=== PATIENT | male | born 2000 | race Two or more races ===

== ENCOUNTER 2024-04-29 03:57 | Inpatient (IN) | payer MEDICAID, OTHER ==
[~2024-04-29] VITALS: Ht 165.1 cm; Wt 59.0 kg
[2024-04-29 04:20] VITALS: PULSE 98; RESP 18; O2SAT 95
[2024-04-29] MEDS ORDERED: LORazepam 2MG/ML-1ML VIAL IV PRN ×2 (04:30→13:45)
[2024-04-29] MEDS: levETIRAcetam 1000 mg/100ml 100 ML IV ONE (04:52)
[2024-04-29 05:00] VITALS: PULSE 101; RESP 25; O2SAT 100
[2024-04-29 05:14] LABS: Basophils # (auto) 0 10 ^3/uL (0-0.2); Basophils % (auto) 0.1 % (0.0-2.0); Eosinophils # (auto) 0 10 ^3/uL (0-0.8); Hematocrit 45.1 % (41.0-53.0); Hemoglobin 15.1 g/dL (13.5-17.5); Lymphocytes # (auto) 0.5 10 ^3/uL (0.4-5.4); Lymphocytes % (auto) 3.5 % (10.0-50.0); Mean Corpuscular Hemoglobin 29.5 pg (28.0-32.0); Mean Corpuscular Hgb Conc. 33.6 g/dL (32.0-36.0); Mean Corpuscular Volume 87.8 fL (80.0-100.0); Monocytes % (auto) 6.9 % (0.0-12.0); Neutrophils # (auto) 13.5 10 ^3/uL (1.6-8.6); Neutrophils % (auto) 89.5 % (37.0-80.0); Red Blood Cells 5.13 10^6/uL (4.5-5.90); Red Cell Distribution Width 12.8 % (11.8-14.3)
[2024-04-29 05:43] LABS: Alanine Aminotransferase 23 U/L (7-40); Albumin 4.9 g/dL (3.2-4.8); Alkaline Phosphatase 59 U/L (46-116); Anion Gap 8 (5-15); Aspartate Aminotransferase 41 U/L (13-40); BUN/Creatinine Ratio 9.9 (10.0-20.0); Blood Alcohol < 3.0 mg/dL (<10); Blood Urea Nitrogen 13 mg/dL (9-23); Calcium 9.2 mg/dL (8.5-10.1); Carbon Dioxide 23 mmol/L (20-30); Chloride 109 mmol/L (98-107); Glucose 112 mg/dL (74-106); Potassium 4.2 mmol/L (3.5-5.1); Sodium 140 mmol/L (136-145)
[2024-04-29 05:44] LABS: Bilirubin, Total 0.3 mg/dL (0.2-1.0); Total Protein 7.5 g/dL (5.7-8.2)
[2024-04-29] MEDS: TETANUS-DIPTH-ACEL PERTUSSIS 0.5ML SYR Tdap IM ONE (07:15)
[2024-04-29 08:00] VITALS: PULSE 96; O2SAT 98
[2024-04-29] MEDS: ACETAMINOPHEN 325 MG TAB PO ONE (09:41)
[2024-04-29] MEDS: NEOMYCIN-BACITRACIN-POLYM UNITDOSE PKG TOP OINT TOP ONE (12:30)
[2024-04-29] MEDS ORDERED: ONDANSETRON HCL 4 MG/2 ML VIAL IV PRN (13:45)
[2024-04-29] MEDS ORDERED: DOCUSATE SOD 100 MG CAP PO PRN (13:45)
[2024-04-29] MEDS ORDERED: SODIUM CHLORIDE 0.9% 1,000 ML IV SCH (13:45)
[2024-04-29] MEDS: ONDANSETRON HCL 4 MG/2 ML VIAL IV ONE (13:48)
[2024-04-29] MEDS: SODIUM CHLORIDE 0.9% 1,000 ML IV ONE (13:48)
[2024-04-29] MEDS: SODIUM CHLORIDE 0.9% 2,000 ML IV ONE (14:15)
[2024-04-29] MEDS: MORPHINE SULFATE INJ 2 MG/ml SYRG IV PRN (14:18)
[2024-04-29] MEDS: SODIUM CHLORIDE 0.9% 1,000 ML IV SCH (14:42)
[2024-04-29] MEDS: METOCLOPRAMIDE HCL 5MG/ml INJ 2ml VIAL IV PRN (14:49)
[2024-04-29] MEDS ORDERED: MORPHINE SULFATE INJ 2 MG/ml SYRG IV PRN ×3 (19:15→23:15)
[2024-04-29] MEDS: HYDROcodone-ACET 5/325MG TAB PO PRN (20:00)
[2024-04-29 20:15] VITALS: PULSE 90; RESP 22; O2SAT 98
[2024-04-29 20:52] LABS: Urine Bacteria FEW /hpf (None Seen); Urine Blood 1+ /uL (Negative); Urine Clarity Clear (Clear); Urine Color Colorless (Yellow); Urine Hyaline Cast FEW /lpf (0 - 2); Urine Mucus FEW (None Seen); Urine Protein, UAD 1+ (Negative); Urine Specific Gravity 1.006 (1.001-1.035); Urine Urobilinogen Normal (Negative); Urine WBC 2 /hpf (0 - 3); Urine pH 5.5 (5.0-9.0)
[2024-04-29 20:54] LABS: Amphetamine Screen, Urine Neg (NEGATIVE); Barbiturate Scree,Urine Neg (NEGATIVE); Benzodiazephine Screen, Urine Pos (NEGATIVE); Cannabinoid Screen, Urine Pos (NEGATIVE); Cocaine Screen, Urine Neg (NEGATIVE); Opiate Scree,Urine Neg (NEGATIVE); Phencyclidine Screen, Urine Neg (NEGATIVE)
[2024-04-29] MEDS ORDERED: levETIRAcetam 1000 mg/100ml 100 ML IV SCH (22:00)
[2024-04-29] MEDS: levETIRAcetam 500 MG TAB PO SCH (22:14)
[2024-04-29] MEDS: NEOMYCIN-BACITRACIN-POLYM 15GM TOP OINT TOP SCH (22:14)
[2024-04-29] MEDS ORDERED: NITROGLYCERIN 0.4 MG SL TAB SL PRN (23:15)
[2024-04-30] VITALS (7 sets, daily range): BP systolic 105–123; BP diastolic 51–78; PULSE 62–77; RESP 16–21; TEMP 97.9–98.7; O2SAT 99–100
[2024-04-30] MEDS: SODIUM CHLORIDE 0.9% 1,000 ML IV SCH (01:30)
[2024-04-30] MEDS ORDERED: LEVE500T40 PO (05:24)
[2024-04-30 06:32] LABS: Basophils # (auto) 0 10 ^3/uL (0-0.2); Basophils % (auto) 0.1 % (0.0-2.0); Eosinophils # (auto) 0 10 ^3/uL (0-0.8); Hematocrit 38.2 % (41.0-53.0); Hemoglobin 13.1 g/dL (13.5-17.5); Lymphocytes # (auto) 1.4 10 ^3/uL (0.4-5.4); Lymphocytes % (auto) 10.4 % (10.0-50.0); Mean Corpuscular Hemoglobin 30.1 pg (28.0-32.0); Mean Corpuscular Hgb Conc. 34.3 g/dL (32.0-36.0); Mean Corpuscular Volume 87.6 fL (80.0-100.0); Monocytes # (auto) 1.4 10 ^3/uL (0-1.3); Monocytes % (auto) 10.8 % (0.0-12.0); Neutrophils # (auto) 10.5 10 ^3/uL (1.6-8.6); Neutrophils % (auto) 78.7 % (37.0-80.0); Red Blood Cells 4.37 10^6/uL (4.5-5.90); White Blood Cell 13.3 10^3/uL (4.4-10.8)
[2024-04-30 06:52] LABS: Alanine Aminotransferase 28 U/L (7-40); Albumin 3.6 g/dL (3.2-4.8); Alkaline Phosphatase 39 U/L (46-116); Anion Gap 12 (5-15); Aspartate Aminotransferase 75 U/L (13-40); BUN/Creatinine Ratio 7.5 (10.0-20.0); Bilirubin, Total 0.6 mg/dL (0.2-1.0); Calcium 8.6 mg/dL (8.7-10.4); Carbon Dioxide 18 mmol/L (20-30); Chloride 115 mmol/L (98-107); Glucose 98 mg/dL (74-106); Potassium 4.1 mmol/L (3.5-5.1); Total Protein 5.7 g/dL (5.7-8.2)
[2024-04-30 07:43] LABS: Blood Urea Nitrogen 24 mg/dL (9-23); Sodium 145 mmol/L (136-145)
[2024-04-30] MEDS ORDERED: KEP500T PO (17:14)
[2024-04-30] MEDS: levETIRAcetam 500 MG TAB PO SCH (18:56)
== END 2024-04-30 20:15 | disposition home or self-care (01) | DRG 53 ==
LOC: EDBD 03:57 → ER 03:57 → TELE-CENTR 23:06 → TELE 23:06 → TELE-CENTR 04-30 03:11
PROVIDERS: ADMIT Internal Medicine; ATTEND Internal Medicine
DX: G40.409 Other generalized epilepsy and epileptic syndromes, not intractable, without status epilepticus (principal); N17.0 Acute kidney failure with tubular necrosis; M62.82 Rhabdomyolysis; S05.31XA Ocular laceration without prolapse or loss of intraocular tissue, right eye, initial encounter; D72.829 Elevated white blood cell count, unspecified; S05.8X1A Other injuries of right eye and orbit, initial encounter; M25.552 Pain in left hip; Z79.899 Other long term (current) drug therapy; W18.30XA Fall on same level, unspecified, initial encounter; Y93.89 Activity, other specified; Y92.89 Other specified places as the place of occurrence of the external cause; Y99.8 Other external cause status
CPT/HCPCS: 36415; 70450; 72125; 73060; 73502; 80053; 80307; 80320; 81001; 82550; 83874; 85025; 90471; 90715; 96361; 96365; 96375; G0378; J2405

== ENCOUNTER 2024-07-09 04:56 | Emergency (ER) | payer MEDICAID, OTHER ==
[~2024-07-09] VITALS: Ht 175.3 cm; Wt 72.0 kg
[~2024-07-09 04:56] MED LIST: KEP500T PO; LEVE500T40 PO
[2024-07-09 05:15] VITALS: TEMP 98.1
[2024-07-09 05:30] VITALS: PULSE 18; RESP 18; O2SAT 96
[2024-07-09] MEDS: levETIRAcetam 1000 mg/100ml 100 ML IV ONE (05:30)
[2024-07-09] MEDS: SODIUM CHLORIDE 0.9% 1,000 ML IV ONE (05:45)
[2024-07-09 06:14] LABS: Basophils # (auto) 0 10 ^3/uL (0-0.2); Basophils % (auto) 0.3 % (0.0-2.0); Eosinophils # (auto) 0.1 10 ^3/uL (0-0.8); Eosinophils % (auto) 0.7 % (0.0-7.0); Hematocrit 45.6 % (41.0-53.0); Hemoglobin 15.7 g/dL (13.5-17.5); Lymphocytes # (auto) 2.7 10 ^3/uL (0.4-5.4); Mean Corpuscular Hemoglobin 30.3 pg (28.0-32.0); Mean Corpuscular Hgb Conc. 34.4 g/dL (32.0-36.0); Mean Corpuscular Volume 88.1 fL (80.0-100.0); Monocytes # (auto) 0.6 10 ^3/uL (0-1.3); Monocytes % (auto) 5.4 % (0.0-12.0); Neutrophils % (auto) 67.6 % (37.0-80.0); Nucleated Red Blood Cells % 0.1 %; Red Blood Cells 5.17 10^6/uL (4.5-5.90); Red Cell Distribution Width 13.8 % (11.8-14.3); White Blood Cell 10.4 10^3/uL (4.4-10.8)
[2024-07-09] MEDS: ACETAMINOPHEN 500 MG TAB PO ONE (06:18)
[2024-07-09 06:25] LABS: Alanine Aminotransferase 38 U/L (7-40); Albumin 4.8 g/dL (3.2-4.8); Alkaline Phosphatase 55 U/L (46-116); Anion Gap 4 (5-15); Aspartate Aminotransferase 133 U/L (13-40); BUN/Creatinine Ratio 10.3 (10.0-20.0); Bilirubin, Total 0.4 mg/dL (0.2-1.0); Blood Urea Nitrogen 12 mg/dL (9-23); Calcium 9.7 mg/dL (8.7-10.4); Carbon Dioxide 27 mmol/L (20-30); Chloride 110 mmol/L (98-107); Glucose 159 mg/dL (74-106); Potassium 4.4 mmol/L (3.5-5.1); Sodium 141 mmol/L (136-145); Total Protein 7.5 g/dL (5.7-8.2)
[2024-07-09 08:12] VITALS: BP 111/65; RESP 15; O2SAT 100
[2024-07-09 08:41] VITALS: PULSE 99
[2024-07-09] MEDS ORDERED: HYDR-3682 PO (08:41)
== END 2024-07-09 09:11 | disposition home or self-care (01) ==
LOC: EDBD 04:56 → ER 05:00
DX: S00.81XA Abrasion of other part of head, initial encounter (principal); F41.9 Anxiety disorder, unspecified; R56.9 Unspecified convulsions; W06.XXXA Fall from bed, initial encounter; Y93.89 Activity, other specified; Y92.89 Other specified places as the place of occurrence of the external cause; Y99.8 Other external cause status
CPT/HCPCS: 36415; 70450; 80053; 85025; 93005; 96365; 96366; 99285; J1953